=== PATIENT | female | born 1975 | race Caucasian/White ===

== ENCOUNTER 2022-06-04 00:27 | Day surgery (SDC) | payer OTHER, SELFPAY ==
--- NOTE | 2022-05-27 15:03 | PC.NURSE ---
Report to the Outpatient Waiting Room, entrance under the green pavilion located off [facility], at time _0600 on date 06/04/22_. Planned Procedure Time: 0730_. Time changes happen often and if your time is changed the preop area will call you the afternoon before. - You and your visitor will be asked to self-screen and do not enter if you have any COVID symptoms. - Only one visitor is requested with a max of two and NO children visitors are allowed at this time. - The patient visitor may be requested to leave or wait in car when not with patient due to distancing restrictions. - A mask is optional within the hospital at this time. Patients may have clear liquids (water, carbonated beverages, clear teas, apple juice) until 3 hours prior to surgery with a maximum of 20 ounces. - No food from midnight until time of surgery - Infants may have breast milk until 4 hours before surgery, infant formula 6 hours prior to surgery. - Children will be allowed to drink immediately following surgery. If applicable, please bring a bottle or sippy cup to assist with drinking. Juice, water, soda, and popsicles are readily available. For infants on formula, please bring formula the day of surgery. Pacifiers are allowed. Take the following medications with a SIP of water the morning of surgery: __NONE DO NOT STOP ANY OF YOUR OTHER PRESCRIPTION MEDICATIONS PRIOR TO SURGERY ?EXCEPT THE FOLLOWING Medications to discontinue per physician NONE Date to take last dose Please no make-up, nail greek, hairspray, perfume, deodorant, or body powder the day of surgery. No jewelry (including any body piercings) or valuables the day of surgery, leave them at home. Please take a shower or bath the night before, or the morning of, surgery with an antibacterial soap. Wear comfortable, loose fitting clothing. Children are encouraged to wear pajamas. - Jewelry must be removed prior to entering the operating room. Rings and piercings that are not removed may be cut off. - The hospital will not accept responsibility for valuables. - Please leave all valuables, including medications, at home the day of surgery. If you are going home after surgery, a licensed jitney driver must drive you home. - NO public transportation without another adult if you receive anesthesia. - We recommend that an adult stay with you for 24 hours following discharge. - We also recommend that you do not drive, make important decision, drink alcoholic beverages, or take any drugs that were not prescribed by your health care provider for at least 24 hours after your discharge time. For Pediatric surgeries, we recommend two adults accompany the child home. Follow any additional instructions given to you from your surgeon. If you or anyone in your household have experienced Covid symptoms in the past week, please notify your surgeon or the nurse liaison at the phone number below for possible testing. Telephone instructions given to _PATIENT_and asked if any additional questions and then verbalized understanding. Patient advised to call surgeon office or pre surgery nurse liaison [phone] if any additional questions.
[2022-06-04 06:04] VITALS: BMI 23.8
[2022-06-04 06:29] LABS: Urine Cotinine NEGATIVE
[2022-06-04 06:44] VITALS: BP 105/73; PULSE 65; RESP 16; TEMP 37.4; O2SAT 100
--- NOTE | 2022-06-04 06:56 | WPDHPUPDATE1 ---
History and Physical Update Update Date/Time: 06/04/22 06:56 History and Physical has been reviewed, including an updated exam of the patient. There are NO changes in the patient's condition. Risks, benefits, and alternatives have been discussed and questions answered. Patient agrees to proceed with procedure.
--- NOTE | 2022-06-04 07:07 | P.PNAN_ITS ---
Anes - Initial Pre Proc Eval Procedure: Operation Date: 06/04/22 07:30 Proposed Procedures p Labiaplasty - Alejandro Mata MD Date/Time: 06/04/22 07:07 Surgeon: Alejandro Mata MD Pre Op Diagnosis: hypertrophic labia Patient Data Age: 46 Gender: F Height: 1.65 m Weight: 64.8 kg Last Vital Signs Temp 37.4 C 06/04/22 06:44 Pulse 65 06/04/22 06:44 Resp 16 06/04/22 06:44 BP 105/73 06/04/22 06:44 Pulse Ox 100 06/04/22 06:44 O2 Del Method Room Air 06/04/22 06:44 Allergies Allergy/AdvReac Type Severity Reaction Status Date / Time No Known Allergies Allergy Verified 06/04/22 06:00 Home Medications Medication Instructions Recorded Confirmed Type No Home Medications 05/27/22 05/27/22 History Laboratory Tests 06/04/22 06:01 Cotinine Negative Patient hx anesthesia problems: none Family hx anesthesia problems: none Results Review: All pre-operative results and documents have been reviewed as part of the pre- operative evaluation. [facility] Social History Social History Smoking status: Never smoker Alcohol intake: current Drinks per week: 6 Substance use: never Living arrangements: with family Anes - Eval Final PreProcedure Day of Procedure 06/04/22 07:07 Patient weight: normal Heart: regular rate and rhythm Lungs: clear to auscultation Airway: Mallampati scale class III Neurological: alert and oriented Last oral intake: >/= 8 hours ASA classification: I Emergent: no Anesthetic plan: proceed Anesthesia type and monitoring: general LMA and standard monitoring Results Review: All pre-operative results and documents have been reviewed as part of the pre- operative evaluation. Informed Consent: The patient's anesthetic plan and its attendant risks and benefits were discussed with the patient/family/POA. Questions were solicited and answers provided to the satisfaction of the patient/family/POA.
[2022-06-04] MEDS: LACTATED RINGERS 1,000 ML 30 ML IV CONT (07:21)
[2022-06-04] MEDS: ceFAZolin 2 GM/D5W 50 ML 2 GM/50 ML BAG IVPB (07:24)
--- NOTE | 2022-06-04 07:25 | P.OP_ITS ---
Procedure Note - Detailed Date of Procedure 06/04/22 Pre-op Diagnosis hypertrophic labia Post-op Diagnosis Same Procedure Performed Bilateral labiaplasty Surgeon Alejandro Mata MD Anesthesia General Description of Procedure Preoperatively the risks, benefits, alternatives were discussed in extensive detail. I want her to be very realistic about the risks involved as well as expectations. I made sure answered all of her questions to her satisfaction. She voiced a clear understanding. Consent obtained. She was taken to the operating room placed supine on operating table. Anesthesia provided by anesthesiology. She was placed in stirrups with care taken to protect from injury. Prepped and draped in a standard sterile fashion. Surgical time out was taken. She was marked. 1% lidocaine and 0.25% Marcaine with epinephrine was used anesthetize locally. I sharply excised the planed wedge excision of labia minora. Electrocautery was utilized in order to ensure hemostasis. I closed with 3-0 Biosyn followed by 5- 0 chromic. Dressings were placed. She was awoken and taken to the PACU. All instrument and sponge counts were correct at the end of the case. Estimated Blood Loss 10 Drains No Packing No Pathology None sent Complications No immediate complications Condition Stable Disposition PACU
[2022-06-04] MEDS: BUPivacaine HCL 0.25% PF 30 ML VIAL INFILTRATE (08:14)
[2022-06-04] MEDS: LIDO 1%/EPINEPHRINE 1:100,000 20 ML VIAL 10 ML INFILTRATE (08:15)
[2022-06-04 08:25] VITALS: BP 104/67; PULSE 98; RESP 22; TEMP 37.2; O2SAT 100
[2022-06-04 08:40] VITALS: BP 103/68; PULSE 87; RESP 12; O2SAT 100
[2022-06-04 08:55] VITALS: BP 100/72; PULSE 85; RESP 12; O2SAT 97
[2022-06-04 09:10] VITALS: BP 106/72; PULSE 86
[2022-06-04] MEDS: oxyCODONE HCL (*CRX) 5 MG TAB IR PO (09:25)
[2022-06-04 09:40] VITALS: BP 102/65; PULSE 76
--- NOTE | 2022-06-04 09:51 | SUR.PHASEII ---
Patient vitals are stable. She is unhooked from the monitors and waiting for ride.
== END 2022-06-04 09:58 | disposition home or self-care (01) ==
PROVIDERS: Visit Provider Surgery Plastic and Reconstructive Surgery
PROC: (CPT 56620; principal; 2022-06-04 07:30)
DX: N90.60 Unspecified hypertrophy of vulva (principal)
CPT/HCPCS: 56620; 80307; A9270; J0690; J1100; J2250; J2405; J2704; J3010; J7120